=== PATIENT | female | born 1960 | race Caucasian/White ===

== ENCOUNTER 2022-05-23 12:31 | Outpatient (CLI) | payer BC | END 2022-05-23 12:32 | disposition home or self-care (01) | LOC: CSHULT 12:31 | PROVIDERS: ATTEND Family Medicine | DX: R00.2 Palpitations (principal); I34.0 Nonrheumatic mitral (valve) insufficiency; I07.1 Rheumatic tricuspid insufficiency | CPT/HCPCS: 93306 ==